=== PATIENT | female | born 1985 | race Caucasian/White ===

== ENCOUNTER 2017-05-18 21:13 | Emergency (ER) | payer OTHER ==
[2017-05-19 00:08] LABS: ADD MAN DIFF? NO
[2017-05-19 00:10] LABS: BASOPHIL # 0.1 10^3/ul (0.0-0.1); BASOPHILS % 0.8 % (0.0-2.0); EOSINOPHILS # 0.4 10^3/ul (0.0-0.5); EOSINOPHILS % 3.8 % (0.0-7.0); HEMATOCRIT 37.5 % (37.0-47.0); HEMOGLOBIN 12.4 g/dl (12.0-16.0); LYMPHOCYTES # 3.4 10^3/ul (0.8-2.9); LYMPHOCYTES % 30.6 % (15.0-51.0); MEAN CORPUSCULAR HEMOGLOBIN 29.5 pg (29.0-33.0); MEAN CORPUSCULAR HGB CONC 33.1 g/dl (32.0-37.0); MEAN CORPUSCULAR VOLUME 89.3 fl (82.0-101.0); MEAN PLATELET VOLUME 9.1 fl (7.4-10.4); MONOCYTE # 0.8 10^3/ul (0.3-0.9); NEUTROPHIL # 6.4 10^3/ul (1.6-7.5); NEUTROPHILS % 57.5 % (39.0-77.0); PLATELET COUNT 434 10^3/UL (140-415); RED CELL DISTRIBUTION WIDTH 12.7 % (11.5-14.5)
[2017-05-19 00:10] LABS: WHITE BLOOD COUNT 11.1 10^3/ul (4.8-10.8)
[2017-05-19 00:13] LABS: ADD UMIC NO; UR ASCORBIC ACID NEGATIVE (NEGATIVE); UR BILIRUBIN (Dip) NEGATIVE (NEGATIVE); UR BLOOD (Dip) NEGATIVE (NEGATIVE); UR CLARITY CLEAR (CLEAR); UR COLOR STRAW (YELLOW); UR GLUCOSE (Dip) NEGATIVE (NEGATIVE); UR KETONES (Dip) NEGATIVE (NEGATIVE); UR LEUKOCYTE ESTERASE (Dip) NEGATIVE Leu/ul (NEGATIVE); UR NITRITE (Dip) NEGATIVE (NEGATIVE); UR SPECIFIC GRAVITY (Dip) 1.006 (1.003-1.030); UR TOTAL PROTEIN (Dip) NEGATIVE (NEGATIVE); UR UROBILINOGEN (Dip) NEGATIVE (NEGATIVE)
[2017-05-19 00:27] LABS: ALANINE AMINOTRANSFERASE 85 IU/L (13-69); ALBUMIN 4.4 g/dl (3.3-4.9); ALKALINE PHOSPHATASE 93 IU/L (42-121); ANION GAP 18 (8-16); ASPARTATE AMINO TRANSFERASE 40 IU/L (15-46); BLOOD UREA NITROGEN 11 mg/dl (7-20); CALCIUM 9.8 mg/dl (8.4-10.2); CARBON DIOXIDE 26 mmol/L (21-31); CHLORIDE 104 mmol/L (97-110); CREATININE 0.75 mg/dl (0.44-1.00); GLUCOSE 108 mg/dl (70-220); LIPASE 18 U/L (23-300); POTASSIUM 4.2 mmol/L (3.5-5.1); SODIUM 144 mmol/L (135-144); TOTAL PROTEIN 8.4 g/dl (6.1-8.1)
== END 2017-05-19 02:38 | disposition home or self-care (01) ==
LOC: FTE 21:13
DX: A08.4 Viral intestinal infection, unspecified (principal); J45.909 Unspecified asthma, uncomplicated
CPT/HCPCS: 36415; 74176; 80053; 81003; 83690; 85025; 99284-25

== ENCOUNTER 2017-07-01 13:43 | Emergency (ER) | payer OTHER ==
[2017-07-01 16:04] LABS: ADD MAN DIFF? NO
[2017-07-01 16:07] LABS: WHITE BLOOD COUNT 6.3 10^3/ul (4.8-10.8)
[2017-07-01 16:07] LABS: BASOPHIL # 0.1 10^3/ul (0.0-0.1); BASOPHILS % 0.8 % (0.0-2.0); EOSINOPHILS # 0.4 10^3/ul (0.0-0.5); EOSINOPHILS % 6.6 % (0.0-7.0); HEMATOCRIT 37.5 % (37.0-47.0); HEMOGLOBIN 12.4 g/dl (12.0-16.0); LYMPHOCYTES # 2.2 10^3/ul (0.8-2.9); LYMPHOCYTES % 35.2 % (15.0-51.0); MEAN CORPUSCULAR HGB CONC 33.1 g/dl (32.0-37.0); MEAN CORPUSCULAR VOLUME 87.6 fl (82.0-101.0); MEAN PLATELET VOLUME 8.9 fl (7.4-10.4); MONOCYTE # 0.9 10^3/ul (0.3-0.9); MONOCYTES % 14.1 % (0.0-11.0); NEUTROPHIL # 2.7 10^3/ul (1.6-7.5); NEUTROPHILS % 42.7 % (39.0-77.0); PLATELET COUNT 447 10^3/UL (140-415); RED BLOOD COUNT 4.28 10^6/ul (4.20-5.40); RED CELL DISTRIBUTION WIDTH 12.9 % (11.5-14.5)
[2017-07-01 16:17] LABS: ADD UMIC YES; UR ASCORBIC ACID NEGATIVE (NEGATIVE); UR BILIRUBIN (Dip) NEGATIVE (NEGATIVE); UR BLOOD (Dip) 2+ mg/dL (NEGATIVE); UR CLARITY CLEAR (CLEAR); UR COLOR COLORLESS (YELLOW); UR GLUCOSE (Dip) NEGATIVE (NEGATIVE); UR KETONES (Dip) NEGATIVE (NEGATIVE); UR LEUKOCYTE ESTERASE (Dip) NEGATIVE Leu/ul (NEGATIVE); UR NITRITE (Dip) NEGATIVE (NEGATIVE); UR RBC 0 /HPF (0-5); UR SPECIFIC GRAVITY (Dip) 1.001 (1.003-1.030); UR TOTAL PROTEIN (Dip) NEGATIVE (NEGATIVE); UR UROBILINOGEN (Dip) NEGATIVE (NEGATIVE); UR WBC 0 /HPF (0-5)
[2017-07-01 16:30] LABS: ALANINE AMINOTRANSFERASE 78 IU/L (13-69); ALBUMIN 4.2 g/dl (3.3-4.9); ALBUMIN/GLOBULIN RATIO 1.05; ALKALINE PHOSPHATASE 110 IU/L (42-121); ANION GAP 16 (8-16); ASPARTATE AMINO TRANSFERASE 42 IU/L (15-46); BLOOD UREA NITROGEN 8 mg/dl (7-20); CALCIUM 9.2 mg/dl (8.4-10.2); CARBON DIOXIDE 25 mmol/L (21-31); CHLORIDE 104 mmol/L (97-110); CREATININE 0.69 mg/dl (0.44-1.00); GLUCOSE 128 mg/dl (70-220); LIPASE 26 U/L (23-300); POTASSIUM 4.2 mmol/L (3.5-5.1); SODIUM 141 mmol/L (135-144); TOTAL PROTEIN 8.2 g/dl (6.1-8.1)
== END 2017-07-01 17:18 | disposition home or self-care (01) ==
LOC: FTE 13:43
DX: R10.30 Lower abdominal pain, unspecified (principal); J45.909 Unspecified asthma, uncomplicated
CPT/HCPCS: 76830; 76856; 80053; 81001; 83690; 85025; 99284-25

== ENCOUNTER 2017-07-05 09:49 | Emergency (ER) | payer OTHER ==
[2017-07-05 12:44] LABS: ADD MAN DIFF? NO
[2017-07-05] MEDS: ONDANSETRON (ODT) 4 MG TAB ODT (12:49)
[2017-07-05] MEDS: HYDROCODONE/APAP (5/325) TAB PO (12:49)
[2017-07-05 12:51] LABS: WHITE BLOOD COUNT 7.7 10^3/ul (4.8-10.8)
[2017-07-05 12:51] LABS: BASOPHIL # 0.1 10^3/ul (0.0-0.1); BASOPHILS % 1.3 % (0.0-2.0); EOSINOPHILS # 0.5 10^3/ul (0.0-0.5); EOSINOPHILS % 6.1 % (0.0-7.0); HEMATOCRIT 37.7 % (37.0-47.0); HEMOGLOBIN 12.3 g/dl (12.0-16.0); LYMPHOCYTES # 2.1 10^3/ul (0.8-2.9); LYMPHOCYTES % 26.8 % (15.0-51.0); MEAN CORPUSCULAR HEMOGLOBIN 28.9 pg (29.0-33.0); MEAN CORPUSCULAR HGB CONC 32.6 g/dl (32.0-37.0); MEAN CORPUSCULAR VOLUME 88.5 fl (82.0-101.0); MEAN PLATELET VOLUME 9.2 fl (7.4-10.4); MONOCYTE # 0.9 10^3/ul (0.3-0.9); MONOCYTES % 11.9 % (0.0-11.0); NEUTROPHILS % 52.3 % (39.0-77.0); PLATELET COUNT 489 10^3/UL (140-415); RED BLOOD COUNT 4.26 10^6/ul (4.20-5.40); RED CELL DISTRIBUTION WIDTH 12.9 % (11.5-14.5)
[2017-07-05 12:53] LABS: ADD UMIC NO; UR ASCORBIC ACID 40 mg/dL (NEGATIVE); UR BILIRUBIN (Dip) NEGATIVE (NEGATIVE); UR BLOOD (Dip) NEGATIVE (NEGATIVE); UR CLARITY CLEAR (CLEAR); UR COLOR YELLOW (YELLOW); UR GLUCOSE (Dip) NEGATIVE (NEGATIVE); UR KETONES (Dip) NEGATIVE (NEGATIVE); UR LEUKOCYTE ESTERASE (Dip) NEGATIVE Leu/ul (NEGATIVE); UR NITRITE (Dip) NEGATIVE (NEGATIVE); UR SPECIFIC GRAVITY (Dip) 1.023 (1.003-1.030); UR TOTAL PROTEIN (Dip) NEGATIVE (NEGATIVE); UR UROBILINOGEN (Dip) NEGATIVE (NEGATIVE)
[2017-07-05 13:08] LABS: ALANINE AMINOTRANSFERASE 143 IU/L (13-69); ALBUMIN 4.2 g/dl (3.3-4.9); ALKALINE PHOSPHATASE 141 IU/L (42-121); ANION GAP 17 (8-16); ASPARTATE AMINO TRANSFERASE 65 IU/L (15-46); BLOOD UREA NITROGEN 12 mg/dl (7-20); CALCIUM 9.5 mg/dl (8.4-10.2); CARBON DIOXIDE 30 mmol/L (21-31); CHLORIDE 107 mmol/L (97-110); CREATININE 0.77 mg/dl (0.44-1.00); GLUCOSE 176 mg/dl (70-220); LIPASE 36 U/L (23-300); POTASSIUM 4.6 mmol/L (3.5-5.1); SODIUM 149 mmol/L (135-144); TOTAL PROTEIN 7.7 g/dl (6.1-8.1)
== END 2017-07-05 15:51 | disposition home or self-care (01) ==
LOC: FTE 09:49
DX: K52.9 Noninfective gastroenteritis and colitis, unspecified (principal); J45.909 Unspecified asthma, uncomplicated
CPT/HCPCS: 36415; 74176; 80053; 81003; 83690; 84703; 85025; 99284-25

== ENCOUNTER 2018-01-20 16:42 | Inpatient (IN) | payer OTHER ==
[2018-01-20] MEDS: ACETAMINOPHEN 325 MG TAB PO (20:38)
[2018-01-20] MEDS: METOCLOPRAMIDE 10 MG TAB PO (20:39)
[2018-01-20 20:45] LABS: ADD MAN DIFF? NO
[2018-01-20 20:46] LABS: WHITE BLOOD COUNT 10.8 10^3/ul (4.8-10.8)
[2018-01-20 20:46] LABS: BASOPHILS % 0.3 % (0.0-2.0); EOSINOPHILS # 0.2 10^3/ul (0.0-0.5); EOSINOPHILS % 1.9 % (0.0-7.0); HEMATOCRIT 26.3 % (37.0-47.0); HEMOGLOBIN 7.9 g/dl (12.0-16.0); LYMPHOCYTES # 1.7 10^3/ul (0.8-2.9); LYMPHOCYTES % 16.1 % (15.0-51.0); MEAN CORPUSCULAR HEMOGLOBIN 21.6 pg (29.0-33.0); MEAN CORPUSCULAR VOLUME 72.1 fl (82.0-101.0); MEAN PLATELET VOLUME 8.6 fl (7.4-10.4); MONOCYTE # 1.1 10^3/ul (0.3-0.9); MONOCYTES % 10.5 % (0.0-11.0); NEUTROPHIL # 7.7 10^3/ul (1.6-7.5); NEUTROPHILS % 70.7 % (39.0-77.0); PLATELET COUNT 592 10^3/UL (140-415); RED BLOOD COUNT 3.65 10^6/ul (4.20-5.40); RED CELL DISTRIBUTION WIDTH 15.7 % (11.5-14.5)
[2018-01-20 21:07] LABS: ALANINE AMINOTRANSFERASE 26 IU/L (13-69); ALBUMIN 3.4 g/dl (3.3-4.9); ALKALINE PHOSPHATASE 152 IU/L (42-121); ANION GAP 14 (8-16); ASPARTATE AMINO TRANSFERASE 24 IU/L (15-46); BILIRUBIN,INDIRECT 0.2 mg/dl (0-1.1); BILIRUBIN,TOTAL 0.2 mg/dl (0.2-1.3); BLOOD UREA NITROGEN 6 mg/dl (7-20); CALCIUM 8.7 mg/dl (8.4-10.2); CARBON DIOXIDE 24 mmol/L (21-31); CHLORIDE 104 mmol/L (97-110); CREATININE 0.48 mg/dl (0.44-1.00); GLUCOSE 96 mg/dl (70-220); POTASSIUM 3.9 mmol/L (3.5-5.1); SODIUM 138 mmol/L (135-144); TOTAL PROTEIN 7.6 g/dl (6.1-8.1)
[2018-01-20 21:12] LABS: INR 1.04; PROTIME 13.7 Sec (11.9-14.9); PT RATIO 1.1
[2018-01-20 21:13] LABS: PARTIAL THROMBOPLASTIN TIME 26.9 Sec (25.0-35.0)
[2018-01-20 21:37] LABS: ADD UMIC YES; UR ASCORBIC ACID 40 mg/dL (NEGATIVE); UR BACTERIA FEW /HPF (NONE SEEN); UR BILIRUBIN (Dip) NEGATIVE (NEGATIVE); UR BLOOD (Dip) NEGATIVE (NEGATIVE); UR CALCIUM OXALATE CRYSTAL FEW /HPF (NONE SEEN); UR CLARITY CLOUDY (CLEAR); UR COLOR YELLOW (YELLOW); UR GLUCOSE (Dip) NEGATIVE (NEGATIVE); UR KETONES (Dip) TRACE mg/dL (NEGATIVE); UR LEUKOCYTE ESTERASE (Dip) NEGATIVE Leu/ul (NEGATIVE); UR MUCUS MANY /HPF (NONE SEEN); UR NITRITE (Dip) NEGATIVE (NEGATIVE); UR RBC 3 /HPF (0-5); UR SQUAMOUS EPITHELIAL CELL MODERATE /HPF (FEW); UR TOTAL PROTEIN (Dip) 1+ mg/dl (NEGATIVE); UR UROBILINOGEN (Dip) NEGATIVE (NEGATIVE); UR WBC 3 /HPF (0-5)
[2018-01-21] MEDS: SOD CHLORIDE 0.9% 500 ML IV (00:36)
[2018-01-21] MEDS ORDERED: DOCUSATE SODIUM 100 MG CAP PO (01:00)
[2018-01-21 01:29] LABS: RETICULOCYTE RBC 3.66
[2018-01-21 01:29] LABS: RETICULOCYTE COUNT # 0.052 X10^6 (0.020-0.110); RETICULOCYTE COUNT % 1.4 % (0.5-1.5)
[2018-01-21 01:34] LABS: IRON 25 ug/dl (35-150)
[2018-01-21 01:34] LABS: LACTATE DEHYDROGENASE 348 IU/L (313-618)
[2018-01-21 01:43] LABS: % IRON SATURATION 6 % SAT (22-52); TOTAL IRON BINDING CAPACITY 443 ug/dl (241-421)
[2018-01-21 04:10] LABS: IMMEDIATE SPIN CROSSMATCH 1 2
[2018-01-21] MEDS: SOD CHLORIDE 0.9% 250 ML IV (04:23)
[2018-01-21] MEDS: POLYSACCHARIDE IRON COMPLEX CAP PO ×2 (08:21→21:35)
[2018-01-21] MEDS: PRENATAL VITAMIN PO (08:21)
[2018-01-21 12:46] LABS: OCCULT BLOOD STOOL POSITIVE (NEGATIVE)
[2018-01-21] MEDS: VANCOMYCIN HCL 250 MG/5ML POSYG PO (17:47)
[2018-01-22] MEDS: VANCOMYCIN HCL 250 MG/5ML POSYG PO ×4 (00:16→18:13)
[2018-01-22 06:10] LABS: ADD MAN DIFF? NO
[2018-01-22 06:16] LABS: BASOPHILS % 0.4 % (0.0-2.0); EOSINOPHILS # 0.3 10^3/ul (0.0-0.5); EOSINOPHILS % 3.8 % (0.0-7.0); HEMATOCRIT 27.4 % (37.0-47.0); HEMOGLOBIN 8.4 g/dl (12.0-16.0); LYMPHOCYTES % 24.9 % (15.0-51.0); MEAN CORPUSCULAR HEMOGLOBIN 22.5 pg (29.0-33.0); MEAN CORPUSCULAR HGB CONC 30.7 g/dl (32.0-37.0); MEAN CORPUSCULAR VOLUME 73.5 fl (82.0-101.0); MEAN PLATELET VOLUME 8.9 fl (7.4-10.4); MONOCYTE # 0.9 10^3/ul (0.3-0.9); MONOCYTES % 10.7 % (0.0-11.0); NEUTROPHIL # 4.9 10^3/ul (1.6-7.5); NEUTROPHILS % 59.7 % (39.0-77.0); PLATELET COUNT 523 10^3/UL (140-415); RED BLOOD COUNT 3.73 10^6/ul (4.20-5.40); RED CELL DISTRIBUTION WIDTH 16.9 % (11.5-14.5)
[2018-01-22 06:16] LABS: WHITE BLOOD COUNT 8.1 10^3/ul (4.8-10.8)
[2018-01-22 06:46] LABS: ANION GAP 11 (8-16); BLOOD UREA NITROGEN 5 mg/dl (7-20); CALCIUM 8.5 mg/dl (8.4-10.2); CARBON DIOXIDE 24 mmol/L (21-31); CHLORIDE 107 mmol/L (97-110); CREATININE 0.47 mg/dl (0.44-1.00); GLUCOSE 90 mg/dl (70-220); SODIUM 138 mmol/L (135-144)
[2018-01-22] MEDS: PRENATAL VITAMIN PO (08:29)
[2018-01-22] MEDS: POLYSACCHARIDE IRON COMPLEX CAP PO ×2 (08:29→20:54)
[2018-01-22 13:48] LABS: OCCULT BLOOD STOOL POSITIVE (NEGATIVE)
[2018-01-22 16:06] LABS: HAPTOGLOBIN 281 mg/dL (43-212); TRANSFERRIN 287 mg/dL (188-341)
[2018-01-22] MEDS: ACETAMINOPHEN 325 MG TAB PO (21:03)
[2018-01-23] MEDS: VANCOMYCIN HCL 250 MG/5ML POSYG PO ×4 (00:09→17:39)
[2018-01-23] MEDS: POLYSACCHARIDE IRON COMPLEX CAP PO ×2 (08:53→20:32)
[2018-01-23] MEDS: PRENATAL VITAMIN PO (08:53)
[2018-01-23 12:05] LABS: OCCULT BLOOD STOOL POSITIVE (NEGATIVE)
[2018-01-23] MEDS: ACETAMINOPHEN 325 MG TAB PO (17:42)
[2018-01-24] MEDS: VANCOMYCIN HCL 250 MG/5ML POSYG PO ×4 (00:28→17:37)
[2018-01-24] MEDS: POLYSACCHARIDE IRON COMPLEX CAP PO ×2 (08:14→20:42)
[2018-01-24] MEDS: PRENATAL VITAMIN PO (08:14)
[2018-01-24] MEDS: ACETAMINOPHEN 325 MG TAB PO (17:37)
[2018-01-25] MEDS: VANCOMYCIN HCL 250 MG/5ML POSYG PO ×4 (05:32→17:30)
[2018-01-25 06:04] LABS: ADD MAN DIFF? NO
[2018-01-25 06:11] LABS: WHITE BLOOD COUNT 6.4 10^3/ul (4.8-10.8)
[2018-01-25 06:11] LABS: BASOPHILS % 0.5 % (0.0-2.0); EOSINOPHILS # 0.2 10^3/ul (0.0-0.5); EOSINOPHILS % 3.6 % (0.0-7.0); HEMATOCRIT 26.9 % (37.0-47.0); HEMOGLOBIN 8.2 g/dl (12.0-16.0); LYMPHOCYTES # 1.7 10^3/ul (0.8-2.9); LYMPHOCYTES % 26.4 % (15.0-51.0); MEAN CORPUSCULAR HEMOGLOBIN 22.4 pg (29.0-33.0); MEAN CORPUSCULAR HGB CONC 30.5 g/dl (32.0-37.0); MEAN CORPUSCULAR VOLUME 73.5 fl (82.0-101.0); MEAN PLATELET VOLUME 8.9 fl (7.4-10.4); MONOCYTE # 0.9 10^3/ul (0.3-0.9); MONOCYTES % 14.7 % (0.0-11.0); NEUTROPHIL # 3.5 10^3/ul (1.6-7.5); NEUTROPHILS % 54.5 % (39.0-77.0); PLATELET COUNT 520 10^3/UL (140-415); RED BLOOD COUNT 3.66 10^6/ul (4.20-5.40); RED CELL DISTRIBUTION WIDTH 17.9 % (11.5-14.5)
[2018-01-25 06:41] LABS: ANION GAP 10 (8-16); BLOOD UREA NITROGEN 4 mg/dl (7-20); CALCIUM 8.6 mg/dl (8.4-10.2); CARBON DIOXIDE 25 mmol/L (21-31); CHLORIDE 106 mmol/L (97-110); CREATININE 0.45 mg/dl (0.44-1.00); GLUCOSE 78 mg/dl (70-220); POTASSIUM 4.3 mmol/L (3.5-5.1); SODIUM 137 mmol/L (135-144)
[2018-01-25] MEDS: POLYSACCHARIDE IRON COMPLEX CAP PO (08:06)
[2018-01-25] MEDS: PRENATAL VITAMIN PO (08:06)
== END 2018-01-25 19:43 | disposition home or self-care (01) | DRG 781 ==
LOC: FTE 16:42 → PP2 01-21 01:09
PROVIDERS: Internal Medicine
PROC: 30233N1 Transfusion of Nonautologous Red Blood Cells into Peripheral Vein, Percutaneous Approach (ICD-10-PCS; principal; 2018-01-21)
DX: O98.812 Other maternal infectious and parasitic diseases complicating pregnancy, second trimester (principal); A04.72 Enterocolitis due to Clostridium difficile, not specified as recurrent; O44.02 Complete placenta previa NOS or without hemorrhage, second trimester; Z3A.14 14 weeks gestation of pregnancy; O99.012 Anemia complicating pregnancy, second trimester; D50.0 Iron deficiency anemia secondary to blood loss (chronic); J45.909 Unspecified asthma, uncomplicated
CPT/HCPCS: 36415; 36430; 76801; 80048; 80053; 81001; 82270; 82728; 83010; 83540; 83615; 84466; 84702; 85025; 85045; 85610; 85730; 86850; 86900; 86901; 86920; 87045; 87075; 99285-25

== ENCOUNTER 2019-01-31 09:22 | Inpatient (IN) | payer OTHER ==
[2019-01-31] MEDS: DEXAMETHASONE 10 MG/ML 1 ML INJ IV (09:56)
[2019-01-31] MEDS: ONDANSETRON 4 MG INJ IV ×2 (09:56→16:29)
[2019-01-31] MEDS: HYDROmorphONE 1 MG/ML SYG IV (09:56)
[2019-01-31] MEDS: SOD CHLORIDE 0.9% 1,000 ML IV (10:01)
[2019-01-31] MEDS: AMPICILLIN/SULB 3 GM/NS (PMX) 100 ML IVPB (11:58)
[2019-01-31] MEDS ORDERED: ONDANSETRON 4 MG INJ IV (12:30)
[2019-01-31] MEDS ORDERED: ACETAMINOPHEN 325 MG TAB PO ×2 (12:30→16:00)
[2019-01-31] MEDS: HYDROmorphONE 2 MG/ML SYG IV (13:21)
[2019-01-31] MEDS ORDERED: LEVALBUTEROL (NEB) 1.25 MG/0.5 ML AMP HHN (16:30)
[2019-01-31] MEDS: HYDROmorphONE 0.5 MG/0.5 ML SYG IV ×2 (16:33→22:12)
[2019-01-31] MEDS: PANTOPRAZOLE IV 80 MG in SOD CHLORIDE 0.9% 100 ML IV (18:34)
[2019-01-31] MEDS: HYDROCODONE/APAP (5/325) TAB PO (18:34)
[2019-01-31] MEDS: PIPER-TAZO 3.375 GM IV (PMX) 100 ML IVPB (18:34)
[2019-01-31] MEDS: D5-NS + KCL 20 MEQ 1,000 ML IV (22:12)
[2019-01-31] MEDS: METHYLPREDNISOLONE 40 MG INJ IV (22:12)
[2019-01-31] MEDS: MESALAMINE (EC) 400 MG CAP PO (22:13)
[2019-01-31] MEDS: metroNIDAZOLE 500 MG/NS (PMX) 100 ML IVPB ×2 (23:32→23:37)
[2019-02-01] MEDS: HYDROCODONE/APAP (5/325) TAB PO ×4 (00:50→18:31)
[2019-02-01] MEDS: PIPER-TAZO 3.375 GM IV (PMX) 100 ML IVPB ×4 (00:50→17:28)
[2019-02-01] MEDS: PANTOPRAZOLE IV 80 MG in SOD CHLORIDE 0.9% 100 ML IV ×3 (02:00→22:00)
[2019-02-01] MEDS: HYDROmorphONE 0.5 MG/0.5 ML SYG IV ×4 (03:12→22:24)
[2019-02-01] MEDS: metroNIDAZOLE 500 MG/NS (PMX) 100 ML IVPB ×3 (05:54→18:32)
[2019-02-01] MEDS: D5-NS + KCL 20 MEQ 1,000 ML IV ×3 (08:20→22:36)
[2019-02-01] MEDS: METHYLPREDNISOLONE 40 MG INJ IV ×2 (09:40→22:23)
[2019-02-01] MEDS: MESALAMINE (EC) 400 MG CAP PO ×3 (09:41→22:32)
[2019-02-01] MEDS: PEG/ELECTROLYTES 4L BTL PO (18:57)
[2019-02-02] MEDS: HYDROCODONE/APAP (5/325) TAB PO (00:03)
[2019-02-02] MEDS: PIPER-TAZO 3.375 GM IV (PMX) 100 ML IVPB ×5 (00:04→18:36)
[2019-02-02] MEDS: ONDANSETRON 4 MG INJ IV ×2 (00:08→10:11)
[2019-02-02] MEDS: metroNIDAZOLE 500 MG/NS (PMX) 100 ML IVPB ×5 (00:34→19:24)
[2019-02-02] MEDS: HYDROmorphONE 0.5 MG/0.5 ML SYG IV ×6 (02:19→22:09)
[2019-02-02] MEDS: PANTOPRAZOLE IV 80 MG in SOD CHLORIDE 0.9% 100 ML IV ×3 (04:11→23:07)
[2019-02-02] MEDS: MESALAMINE (EC) 400 MG CAP PO ×3 (08:55→21:26)
[2019-02-02] MEDS: METHYLPREDNISOLONE 40 MG INJ IV ×2 (10:11→21:26)
[2019-02-02] MEDS ORDERED: ALBUTEROL 0.083% (NEB) 2.5 MG/3 ML AMP HHN (11:00)
[2019-02-02] MEDS ORDERED: HYDROmorphONE 1 MG/5 ML IV SYRINGE IV ×3 (11:00)
[2019-02-02] MEDS ORDERED: ONDANSETRON 4 MG INJ IV (11:00)
[2019-02-02] MEDS ORDERED: MEPERIDINE 25 MG INJ IV (11:00)
[2019-02-02] MEDS: FENTAnyl 50 MCG/ML VIAL (12:17)
[2019-02-02] MEDS: PROPOFOL 40 ML (12:17)
[2019-02-02] MEDS ORDERED: metroNIDAZOLE 500 MG/NS (PMX) 100 ML IVPB (22:20)
[2019-02-02] MEDS: D5-NS + KCL 20 MEQ 1,000 ML IV (23:07)
[2019-02-03] MEDS: D5-NS + KCL 20 MEQ 1,000 ML IV ×3 (00:20→21:21)
[2019-02-03] MEDS: PIPER-TAZO 3.375 GM IV (PMX) 100 ML IVPB ×4 (00:46→17:32)
[2019-02-03] MEDS: metroNIDAZOLE 500 MG/NS (PMX) 100 ML IVPB ×4 (01:44→18:25)
[2019-02-03] MEDS: HYDROmorphONE 0.5 MG/0.5 ML SYG IV ×4 (02:15→18:23)
[2019-02-03] MEDS: PANTOPRAZOLE IV 80 MG in SOD CHLORIDE 0.9% 100 ML IV ×2 (04:00→11:39)
[2019-02-03] MEDS: MESALAMINE (EC) 400 MG CAP PO ×3 (08:57→21:21)
[2019-02-03] MEDS: METHYLPREDNISOLONE 40 MG INJ IV ×2 (08:58→21:21)
[2019-02-03] MEDS: HYDROCODONE/APAP (5/325) TAB PO ×3 (09:06→21:16)
[2019-02-03] MEDS: SOD CHLORIDE 0.9% 250 ML IV* (16:38)
[2019-02-04] MEDS: metroNIDAZOLE 500 MG/NS (PMX) 100 ML IVPB ×4 (00:04→18:40)
[2019-02-04] MEDS: PIPER-TAZO 3.375 GM IV (PMX) 100 ML IVPB ×4 (00:05→17:45)
[2019-02-04] MEDS: HYDROmorphONE 0.5 MG/0.5 ML SYG IV ×5 (00:10→17:30)
[2019-02-04] MEDS: HYDROCODONE/APAP (5/325) TAB PO ×3 (03:27→16:22)
[2019-02-04] MEDS ORDERED: PANTOPRAZOLE (EC) 40 MG TAB PO (04:55)
[2019-02-04] MEDS: PANTOPRAZOLE (EC) 40 MG TAB PO (05:32)
[2019-02-04] MEDS: METHYLPREDNISOLONE 40 MG INJ IV ×2 (09:23→20:27)
[2019-02-04] MEDS: MESALAMINE (EC) 400 MG CAP PO ×3 (09:27→20:28)
[2019-02-04] MEDS: AL HYDROX/MG HYDROX/SIMETH 30 ML CUP PO (13:05)
[2019-02-04] MEDS: D5-NS + KCL 20 MEQ 1,000 ML IV (15:13)
[2019-02-04] MEDS: SOD FERRIC GLUC COMPLX 125 MG in SOD CHLORIDE 0.9% 100 ML IVPB (16:22)
== END 2019-02-04 22:00 | disposition home or self-care (01) | DRG 387 ==
LOC: E/R 09:22 → MS1 12:19 → PP2 23:11
PROC: 0DBK8ZX Excision of Ascending Colon, Via Natural or Artificial Opening Endoscopic, Diagnostic (ICD-10-PCS; principal; 2019-02-02 11:36)
PROC: 0DBL8ZX Excision of Transverse Colon, Via Natural or Artificial Opening Endoscopic, Diagnostic (ICD-10-PCS; 2019-02-02 11:36)
PROC: 0DBM8ZX Excision of Descending Colon, Via Natural or Artificial Opening Endoscopic, Diagnostic (ICD-10-PCS; 2019-02-02 11:36)
DX: K51.911 Ulcerative colitis, unspecified with rectal bleeding (principal); J45.909 Unspecified asthma, uncomplicated; D12.4 Benign neoplasm of descending colon; D12.3 Benign neoplasm of transverse colon; D47.3 Essential (hemorrhagic) thrombocythemia; D50.0 Iron deficiency anemia secondary to blood loss (chronic)
CPT/HCPCS: 36415; 74176; 80048; 80053; 82607; 82728; 83540; 83690; 84703; 85025; 85610; 85730; 86850; 86900; 86901; 86920; 87075; 88305; 93005; 96374; 96375; 96376; 99285-25